=== PATIENT | female | born 1935 | race Caucasian/White ===

== ENCOUNTER → 2017-05-15 | Outpatient (CLI) | payer MEDICARE ==
[~2017-05-15] VITALS: Ht 154.9 cm; Wt 77.6 kg
== END ==
LOC: OPSV 10:39
DX: M84.48XA Pathological fracture, other site, initial encounter for fracture (principal); M81.0 Age-related osteoporosis without current pathological fracture
CPT/HCPCS: 96372

== ENCOUNTER → 2021-03-31 | Outpatient (CLI) | payer MEDICARE ==
[~2021-03-31] VITALS: Ht 147.3 cm; Wt 75.3 kg
[~2021-03-31] MED LIST: BENICAR40 MG PO; CALTRATE 600 +1 EACH PO; CELEBREX 200MG200 MG PO; CELEBREX200 MG PO; CELEXA40 MG PO; DIOVAN320 MG PO; ECOTRIN81 MG PO; ICAPS AREDS FO1 EACH PO; LIPITOR TAB 2020 MG PO; LOPRESSOR50 MG PO; NORVASC2.5 MG PO; PLAVIX 75 MG TA75 MG PO; PROTONIX 40 MG40 M1 PO; PROTONIX PO; TRAMADOL HCL50 MG PO; VITAMIN D250000 UNIT PO; XALATAN2.5 ML OU
== END ==
LOC: OPSV 12:20
DX: M80.08XA Age-related osteoporosis with current pathological fracture, vertebra(e), initial encounter for fracture (principal)
CPT/HCPCS: 96372

== ENCOUNTER → 2021-04-10 | Outpatient (CLI) | payer MEDICARE | LOC: SLEEP 13:27 | DX: G47.10 Hypersomnia, unspecified (principal); G47.30 Sleep apnea, unspecified | CPT/HCPCS: 95810 ==

== ENCOUNTER → 2021-06-12 | Outpatient (CLI) | payer MEDICARE | LOC: SLEEP 14:59 | DX: G47.33 Obstructive sleep apnea (adult) (pediatric) (principal) | CPT/HCPCS: 95810 ==

== ENCOUNTER → 2021-10-04 | Outpatient (CLI) | payer MEDICARE | LOC: OPSV 10:55 | DX: M81.0 Age-related osteoporosis without current pathological fracture (principal); M84.48XA Pathological fracture, other site, initial encounter for fracture | CPT/HCPCS: 96372 ==

== ENCOUNTER → 2022-01-31 | Outpatient (CLI) | payer MEDICARE | LOC: KOH-I 10:48 | DX: S82.65XA Nondisplaced fracture of lateral malleolus of left fibula, initial encounter for closed fracture (principal); M79.89 Other specified soft tissue disorders; M19.072 Primary osteoarthritis, left ankle and foot | CPT/HCPCS: 73610 ==

== ENCOUNTER → 2022-03-22 | Outpatient (CLI) | payer MEDICARE ==
[~2022-03-22] MED LIST changes: +CEFDINIR300 MG PO
== END ==
LOC: KOH-I 08:39
DX: S82.62XD Displaced fracture of lateral malleolus of left fibula, subsequent encounter for closed fracture with routine healing (principal); M19.072 Primary osteoarthritis, left ankle and foot; X58.XXXD Exposure to other specified factors, subsequent encounter
CPT/HCPCS: 73610

== ENCOUNTER → 2022-04-19 | Outpatient (CLI) | payer MEDICARE | LOC: KOH-I 09:54 | DX: S82.832D Other fracture of upper and lower end of left fibula, subsequent encounter for closed fracture with routine healing (principal) | CPT/HCPCS: 73610 ==

== ENCOUNTER → 2022-05-11 | Outpatient (CLI) | payer MEDICARE | LOC: HEART 5 11:39 | DX: G47.10 Hypersomnia, unspecified (principal); G47.30 Sleep apnea, unspecified; G47.34 Idiopathic sleep related nonobstructive alveolar hypoventilation | CPT/HCPCS: 36600; 82803 ==

== ENCOUNTER → 2022-05-15 | Outpatient (CLI) | payer MEDICARE ==
[~2022-05-15] VITALS: Ht 157.5 cm; Wt 77.1 kg
== END ==
LOC: OPSV 05-07 14:00
DX: M80.08XA Age-related osteoporosis with current pathological fracture, vertebra(e), initial encounter for fracture (principal); S22.000A Wedge compression fracture of unspecified thoracic vertebra, initial encounter for closed fracture
CPT/HCPCS: 96372

== ENCOUNTER → 2022-06-18 | Outpatient (CLI) | payer MEDICARE | LOC: KOH-I 15:00 | DX: S82.832A Other fracture of upper and lower end of left fibula, initial encounter for closed fracture (principal) | CPT/HCPCS: 73610 ==